=== PATIENT | female | born 1995 | race Asian ===

== ENCOUNTER 2018-03-23 13:07 | Emergency (ER) | payer OTHER ==
--- NOTE | 2018-03-23 15:10 | EDPHY ---
H & P Stated Complaint: Mens cramps s excessive bleeding, took Midol 2H [employer]. Time Seen by Provider: 03/23/18 14:47 HPI/ROS: CHIEF COMPLAINT: "My menstrual cramps are really bad" HISTORY OF PRESENT ILLNESS: 23-year-old female complaining of menstrual cramping. Menstrual period started yesterday with normal amount of bleeding however cramping on controlled with [id number] Midol. History of dysmenorrhea. Denies: Back or pain, urinary abnormality, fever, chills, trauma ,. REVIEW OF SYSTEMS: 10 systems reviewed and negative with the exception of the elements mentioned in the history of present illness PAST MEDICAL & SURGICAL HISTORY: No pertinent medical or surgical history SOCIAL HISTORY: Nonsmoker PHYSICAL EXAM (Prior to examination, patient consented to physical exam, hands were washed and my usual and customary physical exam procedures followed) 1) GENERAL: Well-developed, well-nourished, alert and oriented. Appears to be in no acute distress. 2) HEAD: Normocephalic, atraumatic 3) HEENT: Pupils equal, round, reactive to light bilaterally. Sclera anicteric. Nasopharynx, oropharynx, clear, no lesions. Moist Mucous membranes. 4) NECK: Full range of motion, no meningeal signs. 5) LUNGS: Clear auscultation bilaterally, no wheezes, no rhonchi, no retractions. 6) HEART: Regular rate and rhythm, no murmur, no heave, no gallop. 7) ABDOMEN: No guarding, tender to palpation suprapubic region, no right lower quadrant pain negative McBurney's, negative Aguilar's, negative Rovsing's, negative peritoneal sign, 8) MUSCULOSKELETAL: Moving all extremities, no focal areas of tenderness, no obvious trauma. No peripheral edema or discoloration. 9) BACK: No CVA tenderness, no midline vertebral tenderness, no fluctuance, no step-off, no obvious trauma, no visual or palpable abnormality. 10) SKIN: No rash, no petechiae. 11) Psychiatric: Patient is oriented X 3, there is no agitation. DIFFERENTIAL DIAGNOSIS: My differential diagnosis includes, but is not limited to, acute appendicitis, acute cholecystitis, bowel obstruction, acute pancreatitis, ovarian torsion, ectopic , gastritis and urinary tract infection. The patient understands that this diagnosis is provisional and can never be 100% accurate. This is a partial list of diagnoses considered. These considerations are based on history, physical exam, past history and reassessment. - Personal History LMP (Females 10-55): Now Current Tetanus/Diphtheria Vaccine: Unsure - Medical/Surgical History Hx Asthma: No Hx Chronic Respiratory Disease: No Hx Diabetes: No Hx Cardiac Disease: No Hx Renal Disease: No Hx Cirrhosis: No Hx Alcoholism: No Hx HIV/AIDS: No Hx Splenectomy or Spleen Trauma: No Other PMH: none - Social History Smoking Status: Never smoked Constitutional: Initial Vital Signs Temperature (C) 36.3 C 03/23/18 13:13 Heart Rate 87 03/23/18 13:13 Respiratory Rate 18 03/23/18 13:13 Blood Pressure 100/73 03/23/18 13:13 O2 Sat (%) 100 03/23/18 13:13 O2 Delivery Mode Room Air Allergies/Adverse Reactions: No Known Allergies Allergy (Unverified 03/23/18 13:12) Home Medications: Medication Instructions Recorded Hydrocodone/APAP 5/325 [[place] 1 tab PO Q6 PRN #10 tab 03/23/18 5/325 (RX)] Medical Decision Making ED Course/Re-evaluation: Re-evaluation with serial exams most recently at this time. Discussed with the patient her imaging results and her diagnostic results. She is not . Urinalysis negative for bacteriuria pyuria. She has no evidence of ovarian torsion on ultrasound. Discussed her left ovarian cyst. She will need follow- up with OBGYN have given her OBGYN follow-up information. Discharged with prescription for analgesia and my usual customary gynecologic precautions and instructions. Care of patient under supervision of secondary supervising physician Dr John . - Data Points Laboratory Results: 03/23/18 03/23/18 15:10 15:10 Urine Color YELLOW Urine Appearance HAZY Urine pH 6.0 (5.0-7.5) Ur Specific [place] 1.026 (1.002-1.030) Urine Protein 1+ H (NEGATIVE) Urine Ketones 1+ H (NEGATIVE) Urine Blood 3+ H (NEGATIVE) Urine Nitrate NEGATIVE (NEGATIVE) Urine Bilirubin NEGATIVE (NEGATIVE) Urine Urobilinogen NEGATIVE EU EU (0.2-1.0) Ur Leukocyte Esterase TRACE H (NEGATIVE) Urine RBC 5-10 /hpf H /hpf (0-3) Urine WBC 10-15 /hpf H /hpf (0-3) Ur Epithelial Cells TRACE /lpf /lpf (NONE-1+) Urine Bacteria TRACE /hpf H /hpf (NONE SEEN) Urine Mucus 2+ /lpf H /lpf (NONE-1+) Urine Glucose NEGATIVE (NEGATIVE) Urine Test NEGATIVE Medications Given: Discontinued Medications Oxycodone/Acetaminophen (Percocet 5/325) 1 tab PO EDNOW ONE Stop: 03/23/18 15:48 Last Admin: 03/23/18 15:52 Dose: Not Given Departure - Departure Disposition: Home, Routine, Self-Care Clinical Impression: Dysmenorrhea, Left ovarian cyst Condition: Good Instructions: Dysmenorrhea (ED), Ovarian Cyst (ED) Additional Instructions: Seek immediate medical attention if you develop new or worsening symptoms, if you develop fevers, chills, inability to tolerate oral intake or any other symptoms that concerns you. Referrals: Trang Garza MD [Medical Doctor] - 1-2 days without fail Prescriptions: Hydrocodone/APAP 5/325 [[place] 5/325 (RX)] 1 tab PO Q6 PRN #10 tab PRN Reason: Pain, Severe
[2018-03-23] MEDS ORDERED: OXYCODONE/APAP 5/325 TAB PO ONE (15:47)
[2018-03-23 17:33] VITALS: BP 104/70
== END 2018-03-23 17:33 | disposition home or self-care (01) ==
DX: N94.6 Dysmenorrhea, unspecified (principal); N83.202 Unspecified ovarian cyst, left side